=== PATIENT | female | born 1985 | race Caucasian/White ===

== ENCOUNTER 2016-10-04 12:53 | Day surgery (SDC) | payer OTHER ==
[~2016-10-04] VITALS: Ht 161.3 cm; Wt 126.0 kg
[~2016-10-04 12:53] MED LIST: CeFAZolin Inj 3 GM in IV Premix 1 EACH IV ONE; Lactated Ringer's 1,000 ML IV SCH
[2016-10-04] MEDS ORDERED: fentaNYL-PF 50 mCg/mL 2 mL Inj ONE ×2 (12:54→15:11)
[2016-10-04] MEDS ORDERED: Propofol 10,000 mCg/mL 20 mL Inj ONE (12:54)
[2016-10-04 13:25] VITALS: BP 133/66; PULSE 95; RESP 16; O2SAT 99
[2016-10-04] MEDS ORDERED: Lactated Ringer's 1,000 ML IV ONE (13:25)
--- NOTE | 2016-10-04 14:24 | PCM.HPANE ---
Patient Data Surgeon Admitting Provider: Attending Provider:Doni Kurtz DO Primary Care Physician:Jenni Christian MD Other Provider:[facility] Reason for Visit Left Ankle Retained Hardware Ht/WT & BMI Height (Feet): 5 Height (Inches): 3.50 Weight (Kilograms): 126 Body Mass Index 48.00 Allergies Coded Allergies: No Known Allergies (Unverified , 06/27/16) Past Anesthesia History Anesthesia History: Denies:: Abnormal Airway, Anesthesia Reactions, Difficult Intubation, Fam Anesthesia Reaction, Malignant Hyperthermia Diabetes History Hx Diabetes?: No MRSA MRSA: No Medications Hypertension Medication: No Home Meds Incl Beta Deangelo: No Discontinued Scripts oxyCODONE-Acetaminophen 5-325 mg 1 Each Tablet1-2 Tab PO Q4H PRN For Pain #30 TABLET Ref 0 Prov:Arpit Hinds MD 06/25/16 History History of ENT Problems?: No HEENT History: Denies:: Abnormal Airway Cataracts Difficult Intubation Dysphagia Glaucoma Hearing Problem Sinus Problem TMJ Hx of Heart Problems?: No Cardiovascular History: Denies:: AICD Congestive Heart Failure Edema Heart Murmur Hypertension Irregular Heartbeat Pacemaker Peripheral Vascular Valvular Heart Disease Hx of Respiratory Problem?: No Respiratory History: Denies:: Asthma COPD Emphysema Oxygen Administration Pneumonia Tuberculosis Use of C-PAP Machine Use of Inhalers / NEBS Hx Neurologic Problems?: No Neurological History: Denies:: CVA Headaches Multiple Sclerosis Parkinson's Disease Seizures Hx of GI Problems?: No Gastrointestinal History: Denies:: Gall Bladder Disease Gastroesphageal Reflux Gastrointestinal Bleeding Heartburn Hepatitis Hiatal Hernia Hx of Problems?: No Genitourinary History: Denies:: Kidney Stones Urinary Tract Infection Female Hx: Denies:: Currently (Tubal ligation. No urine test per anes. ) Problems with Breasts? Skin History: Denies:: History Skin Disorders? Pressure Ulcers Hx Musculoskeletal Problems?: Yes Musculoskeletal History: Positive for:: Musculoskeletal Trauma (left ankle ORIF hardware removal current admission problem) Denies:: Back Injury Fibromyalgia Myasthenia Gravis Osteoarthritis Hx of Psycho/Social Problems?: No Psycho Social History: Denies:: Anxiety Hx Depression Hx Surgeries?: Yes (, tubal) Hx Any Other Health Problems?: Yes Other History: Denies:: Cancer Endocrine Disease Hospitalization Thyroid Disease History Blood Transfusions: Denies:: Accept Blood Products? Blood Transfusions Hx Diabetes: No Hx Alcohol Use: YesAlcoholic Drinks Per Day: once to twice weeklyHx Substance Use: No (past hx of marijuana) Smoking Status: Current Some Day Smoker Have You Smoked inLast 12 mo: Yes (1-2 cigarettes daily) Stop/Bang S-Snoring: Do You Snore Loudly: Yes T-Tired: feel tired, fatigued: Yes O-Obsered: Observed not breath: No P-Blood Pressure: treated: No B- Body Mass Index > 35 kg/m2: Yes A- Age over 50: No N- Neck Large Circumference: Yes G- Gender Male: No WILLIAM Total Score: 4 Risk Assessment Category Category 1A: Patient has history of documented sleep apnea, and HAS NOT received any narcotic, sedative or anesthesia administration during this stay. Category 1B: Patient has history of documented sleep apnea, and HAS received any narcotic , sedative or anesthesia administration during this stay Category 2: Patient has SUSPECTED Obstructive Sleep Apnea, and HAS received any narcotic , sedative or anesthesia administration during this stay. Category 3: Patient has SUSPECTED Obstructive Sleep Apnea and HAS NOT received narcotic, sedative or anesthesia administration during this stay. Category 4: Outpatient in Procedural Areas with known sleep apnea or who screen positive for High Risk via the STOP/BANG questionnaire. Exam Exam Vital Signs Vital Signs Date Time Temp Pulse Resp B/P Pulse Ox O2 Delivery O2 Flow Rate FiO2 10/04/16 13:25 36.6 95 16 133/66 99 Room Air General Appearance: Alert, Oriented X3, Cooperative HEENT/AIRWAY: MP 2 Lungs: Normal Air Movement Heart: Exam Unremarkable Meds/Labs/Diagnostics Admission Meds Current Medications Lactated Ringer's (Lr) 1,000 ml @ ud STK-MED ONCE IV Last administered on t 13:25; Start 10/04/16 at 13:25; Stop 10/04/16 at 13:26; Status DC Plan Impression Patient chart reviewed, patient interviewed and anesthestic plan with risks, benefits, and alternatives discussed, and informed consent obtained. NPO Status: 06/28/16 0000 ASA Physical Status: ASA3 Severe Disease Anesthetic Plan: GA Bene/Risks/Altern/Consents: Yes HP Complete Prior to Induction: Yes Kamaljit Carrizales MD Oct 04, 2016 14:24
[2016-10-04] MEDS ORDERED: Lidocaine 1%/Epi 1:100,000 30 mL MDV INFILTRATE ONE (15:00)
[2016-10-04] MEDS ORDERED: Ropivacaine-PF 0.5% 30 mL Inj INFILTRATE ONE (15:00)
[2016-10-04] MEDS ORDERED: Lactated Ringer's 500 ML IV PRN (15:16)
[2016-10-04] MEDS ORDERED: Lactated Ringer's 1,000 ML IV SCH (15:16)
[2016-10-04] MEDS ORDERED: HYDROmorphone 1 mg/mL Inj IVPUSH PRN (15:20)
[2016-10-04] MEDS ORDERED: MetoCLOpramide 5 mg/mL 2 mL Inj IVPUSH PRN (15:20)
[2016-10-04] MEDS ORDERED: EPHEDrine Sulfate 50 mg/mL Inj IVPUSH PRN (15:20)
[2016-10-04] MEDS ORDERED: Dexamethasone 4 mg/mL Inj IVPUSH PRN (15:20)
[2016-10-04] MEDS ORDERED: Ondansetron 2 mg/mL 2 mL Inj IVPUSH PRN (15:20)
[2016-10-04] MEDS ORDERED: Phenylephrine 10,000 mCg/mL Inj IVPUSH PRN (15:20)
[2016-10-04] MEDS ORDERED: fentaNYL-PF 50 mCg/mL 2 mL Inj IVPUSH PRN (15:20)
[2016-10-04 15:30] VITALS: BP 32/78; PULSE 77; RESP 16; O2SAT 98
--- NOTE | 2016-10-04 15:33 | PCM.ANEP2 ---
Post Anesthesia Evaluation ASA/CMS Post Anesthesia VS in Patient's Normal Range?: Yes Resp Stable; Airway Patent?: Yes CV Function & Hydration Stable: Yes Mental Status Recovered?: Yes Pain control Satisfactory?: Yes N/V Control Satisfactory?: Yes Kamaljit Carrizales MD Oct 04, 2016 15:33
--- NOTE | 2016-10-04 15:33 | PCM.ANEP1 ---
Post Anesthesia Phase 1 PACU Phase 1 Assessment Vital Signs Vital Signs Date Time Temp Pulse Resp B/P Pulse Ox O2 Delivery O2 Flow Rate FiO2 10/04/16 13:25 36.6 95 16 133/66 99 Room Air Anesthetic Administered: GA Level of Alertness: Awake, talking MAGAÑA's with Equal Strength: Yes Pain: No Nausea or Vomiting: No Oxygen Delivery: Room Air Lungs: Normal Air Movement Dermatome Level: Full Sensation Kamaljit Carrizales MD Oct 04, 2016 15:33
[2016-10-04] MEDS ORDERED: hydrOXYzine Pamoate 25 mg Capsule PO PRN (15:35)
[2016-10-04] MEDS ORDERED: oxyCODONE-Acetamin 5-325 mg Tablet PO PRN (15:35)
[2016-10-04 16:10] VITALS: BP 112/74; PULSE 70; RESP 16; O2SAT 98
--- NOTE | 2016-10-04 16:12 | OP ---
[address] [address] OPERATIVE REPORT PATIENT: HAMILTON MERRITT : 1985 MR#: [id number] ADMIT: 10/04/2016 JOB ID: [id number] DATE OF SURGERY: 10/04/2016 PREOPERATIVE DIAGNOSIS(ES): Left ankle retained hardware. POSTOPERATIVE DIAGNOSIS(ES): Left ankle retained hardware. PROCEDURE: Left ankle hardware removal. SURGEON: Doni Kurtz DO. ANESTHESIA: Local with sedation. INDICATIONS: The patient is a 31-year-old female, who had a left ankle fracture dislocation and underwent open reduction and internal fixation for the fracture, June 28, 2016. Has been doing well but was having some pain and swelling in her ankle. Was noted to have loosening of her syndesmotic screw. We discussed treatment options for this and she wished to proceed with a left ankle hardware removal. We discussed the risks, benefits, and possible complications of surgery. All questions were answered and she wished to proceed. PROCEDURE IN DETAIL: Patient was brought to the operating room. She was given a preoperative antibiotic and injected with a mixture of 50% lidocaine, Marcaine with epi about her lateral ankle. An Esmarch tourniquet was used for hemostasis. An incision was made over the lateral syndesmotic screw. Dissection was carefully carried through the subcutaneous tissue and down onto the screw head. The screw was stripped out but was removed without too much difficulty and irrigated. I then did a stress view and there was no significant gapping or medial clear space widening with stress view. Therefore, the wound was closed with interrupted nylon suture and sterile dressings were applied. Patient tolerated the procedure well. Blood loss was minimal. Postoperative protocol. Have the patient weightbear to tolerance, ice and elevate, and follow up in two weeks or sooner if needed.
== END 2016-10-04 23:59 | disposition home or self-care (01) ==
LOC: SAS 12:53
PROVIDERS: ATTEND Orthopaedic Surgery
DX: Z47.2 Encounter for removal of internal fixation device (principal); F17.210 Nicotine dependence, cigarettes, uncomplicated

== ENCOUNTER 2016-12-05 23:34 | Emergency (ER) | payer OTHER ==
[~2016-12-05] VITALS: Ht 162.6 cm; Wt 122.7 kg
[2016-12-05 23:41] VITALS: BP 128/62; RESP 16; O2SAT 100
--- NOTE | 2016-12-06 00:50 | ED.REPORT ---
HPI-General Illness Date of Service December 06, 2016 ED Provider: Brody Bai MD The patient is a 31 year old female who presents to the ED due to 3 days of 10/ 10 odynophagia. Pt has had symptoms for 3 weeks, and it has increased in severity over the past 3 days to the point where she is having trouble swallowing solids and liquids. She also c/o left ear pain. She denies fever, cough, sinus congestion or other symptoms. There is a family hx of throat cancer and she has been a smoker since she was 7 years old. Nursing Notes Stated Complaint: SORE THROAT Chief Complaint: ENT & Mouth Nursing Notes Reviewed: Yes Allergies: Coded Allergies: No Known Allergies (Unverified , 12/05/16) Scheduled Omeprazole (Omeprazole) 20 Mg Tablet.dr 20 MG PO BID General Time Seen by MD: 00:31 Chief Complaint Other (odynophagia) Hx Obtained From: Patient Arrived By: Walk-in Sudden in Onset?: Yes Onset Occurred: 3 days ago Symptom Duration: Since onset Severity: Current: No pain currently Associated with: Reports: Difficulty swallowing Pertinent Negative: Pt denies other symptoms Recent Healthcare: No recent doctor visit, No recent hospitalization Similar Sx Previous: No Past Medical History Past Medical History Notes: follow up in 2 weeks with [facility] for recheck of ankle 06/30/2016 Past Medical History none reported Past Surgical History left ankle surgery 06/28/2016 Reports: Reports: Tubal ligation Family History throat cancer Smoking History Current Every Day Smoker Social History Alcohol Use: Denies alcohol use Other Social History: Good social support, Lives with children, Local resident Ambulatory Status Independent Review of Systems dysphagia Full Review of Systems Constitutional: Denies: Fever Ears / Nose / Throat: Reports: Earache left, Denies: Sinus problem Respiratory: Denies: Non-productive cough Complete sys rev & neg: except as marked. Physical Exam Vital Signs Vital Signs Date Time Temp Pulse Resp B/P Pulse Ox O2 Delivery O2 Flow Rate FiO2 12/05/16 23:41 37.2 96 16 128/62 100 Room Air Initial VS: Reviewed Head / Eyes: Atraumatic, Normocephalic, PERRL Neck: Supple, Non-tender Respiratory: Breath sounds normal, Clear to auscultation, No respiratory distress Cardiovascular: Regular rate & rhythm, Heart sounds normal, Intact distal pulses Lymphatic: No lymphadenopathy Extremities: Vascular intact, Neuro intact, No swelling, No tenderness Skin: Warm, Dry General/Constitutional: Awake, Alert, Cooperative, Not toxic appearing Pharynx / Tonsils / Uvula: Positive: Pharyngeal erythema tonsils not inflamed no exudate tender to palpation on throat left ear canal very erythematous no bulging TM Interpretation & Diagnostics Lab Results Interpretation Result Diagram: 12/06/16 0150 12/06/16 0150 Test 12/06/16 01:50 12/06/16 05:00 White Blood Count 9.5th/mm3 (3.8-10.1) Red Blood Count 4.42mil/mm3 (3.90-5.20) Hemoglobin 13.1g/dL (12.0-15.6) Hematocrit 39.0% (35.0-46.0) Mean Corpuscular Volume 88.2fL (81-100) Mean Corpuscular Hemoglobin 29.6pg (27.0-35.0) Mean Corpuscular Hemoglobin Concent 33.6% (32.0-37.0) Red Cell Distribution Width 13.7% (12.3-15.4) Platelet Count 374bil/L (150-400) Neutrophils (%) (Auto) 63.9% (40-74) Lymphocytes (%) (Auto) 27.1% (14-46) Monocytes (%) (Auto) 5.6% (4-12) Eosinophils (%) (Auto) 3.1% (0-5) Basophils (%) (Auto) 0.2% (0-3) Erythrocyte Sedimentation Rate 24mm/hr (0-32) Prothrombin Time 9.5sec (8.1-12.5) Prothromb Time International Ratio 0.89ratio Sodium Level 136mEq/L (134-144) Potassium Level 4.3mEq/L (3.5-5.2) Chloride Level 99mEq/L (97-108) Carbon Dioxide Level 20mmol/L (18-29) Blood Urea Nitrogen 11mg/dL (6-20) Creatinine 0.69mg/dL (0.57-1.00) Estimat Glomerular Filtration Rate 140mL/min (>59) Glucose Level 123mg/dL (60-99) Lactic Acid Level 1.5mmol/L (0.4-2.0) Calcium Level 8.9mg/dL (8.5-10.1) Magnesium Level 2.1mg/dL (1.6-2.6) Total Bilirubin 0.2mg/dL (0.0-1.2) Aspartate Amino Transf (AST/SGOT) 17U/L (0-50) Alanine Aminotransferase (ALT/SGPT) 31U/L (0-32) Alkaline Phosphatase 102U/L (25-150) Total Protein 7.3g/dL (6.4-8.4) Albumin 4.0g/dL (3.4-5.0) Lipase 33U/L (13-60) Urine Color Yellow (YELLOW) Urine Appearance Hazy (CLEAR,HAZY) Urine pH 6.0 (5.0-8.0) Urine Specific Harrison 1.022 (1.003-1.035) Urine Protein Negativemg/dL (NEG,TRACE) Urine Glucose (UA) Negativemg/dL (NEGATIVE) Urine Ketones Tracemg/dL (NEGATIVE) Urine Occult Blood Negative (NEGATIVE) Urine Nitrite Positive (NEGATIVE) Urine Bilirubin Negative (NEGATIVE) Urine Urobilinogen Normalmg/dL (NORMAL) Urine Leukocyte Esterase Trace (NEGATIVE) Urine RBC 0-2/hpf (0-2) Urine WBC 0-5/hpf (0-5) Urine Epithelial Cells Many/hpf (NONE-MOD) Urine Crystals None seen (NONE SEEN) Urine Bacteria Many/hpf (NONE-FEW) Urine Hyaline Casts None/lpf (NONE) Urine Granular Casts None seen (NONE SEEN) Urine Waxy Casts None seen (NONE SEEN) Urine Red Blood Cell Casts None seen (NONE SEEN) Urine White Blood Cell Casts None seen (NONE SEEN) Urine Mucus None seen (None Seen) Urine Trichomonas None seen (NONE SEEN) Urine Yeast None (NONE SEEN) Urine Culture Reflexed Indicated ECG Interpretation Time: 01:14 Interpreted by: ED physician Normal ECG Interpretation: Normal ECG w/ rate of... (rate 94) CT Chest Interpretation IMPRESSION: nonspecific barium fluid level in the esophagus, likely from recent ingestion. Cannot rule out reflux. Otherwise, normal exam. Radiologist: Deanne Covarrubias M.D. Study type: Chest CT no contrast Interpretation / Wet Read by: Interpret - Radiologist Procedures Peripheral / EJ IV Start Peripheral / EJ IV Start: US guided IV placement right antecubital fossa Time: 03:57 Procedure Performed by: ED physician Type of Catheter: Single lumen Size of Catheter: #20 # of Attempts: 1 Re-Eval/Medical Decision Med Decision/Clinical Course 31-year-old with past history of IV drug abuse, now three months sober, presents with three weeks of progressive odontophagia localizing from upper throat down into mid chest. She has no known history of HIV but risk factors as above. She has never shared needles but has had sex with other IV drug users. No visible candidiasis but that cannot exclude the diagnosis. CT shows air-fluid levels in the esophagus consistent with reflux though nonspecific. Soft tissue neck is negative. Suspect this is severe GERD at issue, and review with her reveals that her symptoms are definitely worse supine and at night, and without other relieving or exacerbating factors noted. Pending lab at this time includes and a rheumatoid factor and an HIV test. She is instructed to follow-up with her PCP for these results. Begun with omeprazole 20 mg twice a day for an eight week course. Discharge now in stable condition Time of Eval: 01:25 Re-Evaluation/Progress Note: Pt rechecked. Pt admits her last drug use was one month ago. She does not share needles and is sexually active. Plan for HIV testing. Time of Eval: 05:00 Re-Evaluation/Progress Note: Pt rechecked. Pt states that her pain is much worse at night. Informed pt of normal imaging results and plan for treatment. F/U and RTER warnings given. Pt understands and agrees with plan. All questions addressed. Counseled Regarding: Diagnosis, Lab results, Need for follow-up, When/why to return to ED Discharge & Departure Primary Impression: Reflux esophagitis Additional Impression: Odynophagia Disposition: Home Discharge Condition All VS Reviewed: Yes Condition: Stable Additional Instructions: Begin omeprazole twice daily for eight weeks. Elevate the head of your bed 6-8 inches or sleep propped up a bit to prevent reflux. Do not eat for two hours prior to going to bed. Follow-up with your doctor in the office Return if worsening despite treatment, particularly if you are unable swallow fluids. Your various inflammatory labs and infectious disease labs will be available to your doctor tomorrow. Call your doctor today for follow-up over the next week. Referrals: Jenni Christian MD (PCP) Scribe Attestation Portion of this note were transcribed by Bharti Krueger. I, Dr. Brody Bai, personally performed the history, physical exam, and medical decision- making: I reviewed and confirmed the accuracy for the information in the transcribed note. Signed by: ronald Jang, 12/06/16 0500 copies to: Jenni Christian MD, Christopher W MD December 06, 2016 00:50 Bharti Krueger December 06, 2016 01:01
[2016-12-06] MEDS ORDERED: 0.9% Sodium Chloride 1,000 ML IV ONE (00:59)
[2016-12-06] MEDS ORDERED: Pantoprazole 4 mg/mL 10 mL Inj IVPUSH ONE (01:00)
[2016-12-06 02:03] LABS: BASOPHILS % (AUTO) 0.2 % (0-3); EOSINOPHILS % (AUTO) 3.1 % (0-5); MONOCYTES % (AUTO) 5.6 % (4-12); Mean Corpuscular Hemoglobin 29.6 pg (27.0-35.0); Mean Corpuscular Volume 88.2 fL (81-100); NEUTROPHILS % (AUTO) 63.9 % (40-74); Platelet Count 374 bil/L (150-400)
[2016-12-06 02:18] LABS: INR 0.89 ratio
[2016-12-06 02:24] LABS: Magnesium 2.1 mg/dL (1.6-2.6)
[2016-12-06] MEDS ORDERED: OMEP20TA86 PO (05:03)
[2016-12-06 05:35] LABS: APPEARANCE,URINE HAZY (CLEAR,HAZY); COLOR,URINE YELLOW (YELLOW); OCCULT BLOOD,URINE NEGATIVE (NEGATIVE); UROBILINOGEN,URINE NORMAL (NORMAL)
--- NOTE | 2016-12-06 11:19 | DRSVH ---
PROCEDURE: CT NECK SOFT TISSUES WITH CONTRAST ([id number]) INDICATIONS: odynophagia for weeks TECHNIQUE: After the administration of intravenous contrast, 3.0 mm axial sections acquired from the sella to th e aortic arch. Additional oblique axial 3.0 mm sections acquired through the pharynx. 3 mm thick co atiya reformats were generated. For radiation dose reduction, the following was used: automated exp osure control. COMPARISON: None. FINDINGS: Image quality: Excellent. Lymph nodes: No enlarged lymph nodes seen throughout the neck. Vessels: Visualized vasculature appears patent. Neck spaces: There is an appearance of mucosal prominence in the oropharynx. No discrete mass. The vo fazal cords, false vocal cords, pyriform sinuses, epiglottis, vallecula, and tongue base all appear nor mal. Extramucosal spaces appear unremarkable. Glands: The parotid and submandibular glands appear normal. Thyroid gland is unremarkable. Miscellaneous: Visualized brain and orbits appear normal. Lung apices appear clear. Superficial so ft tissues appear normal. Bones: No suspicious bony lesions. Visualized sinuses and mastoids appear unremarkable. IMPRESSION: 1. Mucosal prominence of the oropharynx, somewhat nonspecific. This could be liability claims representative of promin ent oral mucosa versus superficial pharyngitis. No adenopathy. No discrete mass. Dictated by: Rita Garcia M.D. on 12/06/2016 at 11:15 Approved by: Rita Garcia M.D. on 12/06/2016 at 11:18
--- NOTE | 2016-12-06 11:21 | DRSVH ---
PROCEDURE: CT CHEST WITH CONTRAST ([id number]) INDICATIONS: odynophagia for weeks TECHNIQUE: After the administration of intravenous contrast, 5 mm thick sections acquired from the pulmonary api malachi to the posterior costophrenic angles. 7 mm thick coronal and sagittal MIP reformats were acquire d. For radiation dose reduction, the following was used: automated exposure control, adjustment of mA and/or kV according to patient size. COMPARISON: None. FINDINGS: Image quality: Excellent. Lungs and pleura: No acute air space opacities. No pleural effusions or pneumothorax. Central and peripheral airways are patent and normal in caliber. Mediastinum: Heart size is normal. No pericardial effusion. No mediastinal or hilar adenopathy by size criteria. Thoracic aorta and central pulmonary arteries are normal in size. Esophagus demonstr ates contrast level within the mid and distal portions. No hiatal hernia. Bones and chest wall: No suspicious bony lesions. No vertebral body compression fractures. No axil jerson or supraclavicular adenopathy by size criteria. Thyroid gland is unremarkable. Abdomen: Visualized upper abdominal solid organs appear normal. Upper abdominal bowel loops are nor mal in caliber. IMPRESSION: 1. Nonspecific appearance of contrast fluid level within the esophagus, likely from recent ingestion. This could also be artist's representative of reflux. Recommend correlation to patient's symptoms and further evaluation with endoscopy or upper GI as clinically indicated. Dictated by: Rita Garcia M.D. on 12/06/2016 at 11:18 Approved by: Rita Garcia M.D. on 12/06/2016 at 11:20
== END 2016-12-06 05:03 | disposition home or self-care (01) ==
LOC: SED 23:34
DX: K21.0 Gastro-esophageal reflux disease with esophagitis (principal); R13.10 Dysphagia, unspecified; H92.02 Otalgia, left ear; F17.200 Nicotine dependence, unspecified, uncomplicated
CPT/HCPCS: 36415; 70491; 71260; 80053; 81000; 81025; 83605; 83690; 83735; 85025; 85610; 85651; 86038; 86430; 87040; 87077; 87086; 87088; 87186; 87880; 93005; 96361; 96374; 99285; G0433; J7030; Q9967

== ENCOUNTER 2017-03-24 23:42 | Emergency (ER) | payer OTHER ==
[~2017-03-24] VITALS: Ht 162.6 cm; Wt 113.6 kg
[~2017-03-24 23:42] MED LIST changes: -CeFAZolin Inj 3 GM in IV Premix 1 EACH IV ONE; -Lactated Ringer's 1,000 ML IV SCH; +OMEP20TA86 PO
[2017-03-24 23:47] VITALS: BP 148/89; PULSE 110; RESP 18; O2SAT 99
--- NOTE | 2017-03-25 01:00 | ED.REPORT ---
HPI-Rash / Abscess Date of Service Mar 25, 2017 ED Provider: Andre Pope MD Pt is an otherwise healthy 31 year old female who presents to the ED complaining of a rash on the RLQ of her abdomen onset 3 days ago. She denies fever, nausea, vomiting, itching, and any other symptoms. The pt reports that she has not experienced similar symptoms previously. She states that the area of erythema has been spreading since onset. The pt reports that she injected methamphetamine into the same location. Nursing Notes Stated Complaint: INFECTION ON RT SIDE OF ABDOMEN Chief Complaint: Skin Rash/Abscess Nursing Notes Reviewed: Yes Allergies: Coded Allergies: No Known Allergies (Unverified , 03/24/17) Scheduled Omeprazole (Omeprazole) 20 Mg Tablet.dr 20 MG PO BID Sulfamethoxazole/Trimeth 800-160 mg (Bactrim DS) 1 Each Tablet 1 TABLET PO BID General Time Seen by MD: 00:59 Chief Complaint Rash Hx Obtained From: Patient Arrived By: Walk-in Onset Occurred: 3 days ago Symptom Duration: Since onset Severity: Current: No pain currently Severity: Maximum: No pain Recent Healthcare: No recent doctor visit, No recent hospitalization Similar Sx Previous: No Past Medical History Past Medical History Notes: follow up in 2 weeks with [facility] for recheck of ankle 06/30/2016 Past Medical History none reported Past Surgical History left ankle surgery 06/28/2016 Reports: Reports: Tubal ligation Family History throat cancer Smoking History Current Every Day Smoker Social History Alcohol Use: Denies alcohol use Other Social History: Good social support, Lives with children, Local resident Ambulatory Status Independent Review of Systems Constitutional: Denies: Fever GI: Denies: Nausea, Vomiting Skin: Reports Rash, Denies Itching Complete sys rev & neg: except as marked. Physical Exam Initial Vital Signs Vital Signs (First) Date Time Temp Pulse Resp B/P Pulse Ox O2 Delivery O2 Flow Rate FiO2 03/24/17 23:47 36.7 110 18 148/89 99 Room Air Initial VS: Reviewed Head / Eyes: Atraumatic, Normocephalic Neck: Supple, Full range of motion Respiratory: Breath sounds normal, Clear to auscultation, No respiratory distress Cardiovascular: Regular rate & rhythm, Heart sounds normal, Intact distal pulses Abdomen / GI: Soft, Non-tender Extremities: Vascular intact, Neuro intact Neurologic: Alert, Oriented, Nonfocal Psychiatric: Mood/affect normal, Behavior normal General/Constitutional: Awake, Alert 8x4 cm area of erythema on right abdominal wall. No fluctuance or discharge. Re-Eval/Medical Decision Med Decision/Clinical Course 31-year-old female who injected meth into her right abdomen now with cellulitis right abdomen no evidence of abscess. She is not septic. She will be treated with oral antibiotics. I marked the cellulitic region she is advised to return tomorrow if it extends beyond the line. Return precautions given. Source of Hx: Old records Re-Evaluation/Progress : Time of Eval: 01:07 Re-Evaluation/Progress Note: Informed pt of plan for discharge. Pt understands and agrees with plan for discharge. F/U instructions and RTER warnings given. All questions addressed. Counseled Regarding: Diagnosis, Lab results, Need for follow-up, When/why to return to ED Discharge & Departure Impression: Primary Impression: Cellulitis Site of cellulitis: unspecified site Qualified Code: L03.90 - Cellulitis, unspecified Disposition: Home Discharge Condition All VS Reviewed: Yes Condition: Stable Patient Instructions: Cellulitis (ED) Additional Instructions: There is no abscess currently. Take the antibiotics as directed. Return to the Emergency Department if you experience nausea/vomiting, or if the area becomes worse (more red, swollen, or has pus), fevers, chills, any other new/worsening symptoms. Otherwise follow up with your primary doctor or urgent care monday for a recheck. Referrals: NOPCP (PCP) [facility] Dick Attestation Portions of this note were transcribed by Fabiana Beltran. I, Dr. Pope personally performed the history, physical exam and medical decision-making; I reviewed and confirmed the accuracy of the information in the transcribed note. Signed by: Dick Hall, 03/24/17. copies to: NOPCP; [facility] Andre Pope MD Mar 25, 2017 01:00 Fabiana Anderson Mar 25, 2017 01:08
[2017-03-25] MEDS ORDERED: SULF1TAB7 PO (01:14)
[2017-03-25] MEDS ORDERED: Trimethoprim-Sulfa 160 mg-800 mg Tablet PO ONE (01:15)
== END 2017-03-25 01:44 | disposition home or self-care (01) ==
LOC: SED 23:42
DX: L03.311 Cellulitis of abdominal wall (principal); F17.200 Nicotine dependence, unspecified, uncomplicated